=== PATIENT | male | born 1980 | race Hispanic/Latino ===

== ENCOUNTER 2022-04-04 23:29 | Emergency (ER) | payer BC ==
[~2022-04-04] VITALS: Ht 177.8 cm; Wt 80.3 kg
[2022-04-04 23:33] VITALS: BP 171/105
[2022-04-05] MEDS ORDERED: CLINDAMYCIN IVPB 600MG/50ML 50 ML IV ONE (00:14)
[2022-04-05] MEDS ORDERED: TETANUS/DIPHTHERIA TOXOID [ADULT] 0.5 ML VIAL IM ONE ×2 (00:16)
[2022-04-05] MEDS ORDERED: CLIN-141 PO (00:18)
[2022-04-05] MEDS: CLINDAMYCIN IVPB 600MG/50ML 50 ML IV STA ×2 (00:24→00:37)
[2022-04-05] MEDS ORDERED: CLINDAMYCIN 150 MG CAP ONE (00:32)
[2022-04-05] MEDS ORDERED: CLINDAMYCIN 150 MG CAP PO ONE (01:00)
== END 2022-04-05 00:43 | disposition home or self-care (01) ==
LOC: EDH 23:29
DX: K61.1 Rectal abscess (principal)
CPT/HCPCS: 90471; 90714; 99284; J3490